=== PATIENT | male | born 1995 | race African-American/Black ===

== ENCOUNTER 2019-05-07 03:33 | Emergency (ER) | payer MEDICAID ==
[~2019-05-07] VITALS: Ht 193 cm; Wt 118.0 kg
[2019-05-07] MEDS ORDERED: IBUPROFEN 600MG TABLET PO ONE (06:45)
[2019-05-07] MEDS ORDERED: ALBUTEROL (0.083%) 2.5MG/3ML NEB HHN ONE (06:45)
[2019-05-07 09:00] VITALS: BP 134/77
== END 2019-05-07 09:06 | disposition home or self-care (01) ==
LOC: ER 05:20
DX: J06.9 Acute upper respiratory infection, unspecified (principal); R03.0 Elevated blood-pressure reading, without diagnosis of hypertension
CPT/HCPCS: 71045; 93005; 94640; 99283; J7611; Z7610